=== PATIENT | female | born 1960 | race Caucasian/White ===

== ENCOUNTER 2016-08-10 19:54 | Emergency (ER) | payer MEDICAID, OTHER ==
[~2016-08-10] VITALS: Ht 160 cm; Wt 65.0 kg
[2016-08-10 20:00] VITALS: Ht 160 cm; Wt 65.0 kg
[2016-08-10] MEDS ORDERED: CEPH-443 PO (20:46)
[2016-08-10] MEDS ORDERED: KENC1 TOP (20:46)
[2016-08-10 21:19] VITALS: BP 116/67; PULSE 73; RESP 20; TEMP 98.3
--- NOTE | 2016-08-10 21:48 | ERD ---
ER Documentation Chief Complaint Date/Time DATE: 08/10/16 TIME: 21:42 Chief Complaint rash/itch left lower leg x 2 weeks HPI 55-year-old female with no significant past medical history presents the ED complaining of a rash noted on her left lower leg that started 2 weeks ago. States that has gotten worse over the last few days. States that she has been scratching the area. States that it is getting bigger. Denies others having the same rash. Denies any exposure to pets or insects. Denies any new use of soaps or detergents or new clothes. States that she has been applying triple antibiotic, Neosporin without relief of the symptoms. States that it is itchy. Denies any diabetes. Denies any fever, chills, leg pain, chest pain, shortness of breath, abdominal pain. ROS All systems reviewed and are negative except as per history of present illness. Medications Home Meds Active Scripts Cephalexin* (Keflex*) 500 Mg Capsule, 500 MG PO QID for 7 Days, CAP Prov:KATRINA JOHNSON PA-C 08/10/16 Triamcinolone Acetonide (Triamcinolone Acetonide) 0.1% - 15 Gm Cream.gm., 1 APPLIC TOP BID, #1 TUB Prov:KATRINA JOHNSON PA-C 08/10/16 Allergies Allergies: Coded Allergies: No Known Drug Allergies (Verified Allergy, Unknown, 08/10/16) PMhx/Soc Medical and Surgical Hx: pt denies Surgical Hx Anesthesia Reaction: No Hx Neurological Disorder: No Hx Respiratory Disorders: No Hx Cardiac Disorders: No Hx Psychiatric Problems: No Hx Miscellaneous Medical Probl: Yes (VENOUS INSUFFICIENCY L LEG) Hx Alcohol Use: No Hx Substance Use: No Hx Tobacco Use: No Smoking Status: Never smoker Physical Exam Vitals Vital Signs Date Time Temp Pulse Resp B/P Pulse Ox O2 Delivery O2 Flow Rate FiO2 08/10/16 21:19 98.3 73 20 116/67 99 Room Air 08/10/16 20:00 98.3 73 20 108/62 99 Physical Exam Const: [id number]-[id number], well-nourished. In no acute distress. Head: Atraumatic, normocephalic Eyes: Normal Conjunctiva without injection ENT: Normal external ear, nose and mouth. Neck: Full range of motion. No meningismus. Resp: Clear to auscultation bilaterally. No wheezing, rhonchi, rales, or crackles. No accessory muscle use. No retractions. Cardio: Regular rate and rhythm, no murmurs Skin: No petechiae, purpura. 4 cm oval rash noted on the anterior serrano, beefy red in color, weeping. No surrounding erythema, edema, purulent discharge, fluctuance, induration. Back: No midline tenderness. No CVA tenderness. Ext: No cyanosis, or edema. Cap refill less than 2 seconds. Distal pulses intact bilaterally. Neur: Awake and alert. Normal gait and coordination. Muscle strength 5/5. Sensation intact bilaterally. Psych: Normal Mood and Affect Procedures/MDM This is a 55-year-old female with no significant past medical history presents to the ED complaining of a rash noted on her left anterior serrano that started 2 weeks ago. Patient is afebrile and nontoxic-appearing. Patient has normal vital signs. Patient's rash could likely be due to possible psoriasis however she was instructed to follow-up with a cell tender helper if symptoms do not improve after trying a course of triamcinolone and Keflex. Outpatient antibiotics will be prescribed for patient since the rash is weeping in nature. Other differential diagnosis considered include but is not limited to allergic contact dermatitis, urticaria, insect bites, cutaneous candidiasis, eczema, tinea infection. Low suspicion for scabies, SJS/TEN, sepsis, cellulitis, erythema multiforme, gangrene, meningococcemia, necrotizing fascitis, or other emergent conditions. This case was discussed with my supervising physician, Dr. Navarro who agreed with the management and discharge plan. Discharge medications: Keflex, Triamcinolone Follow up with primary care physician in 1-2 days. Instructed patient to return to the ED sooner for any worsening symptoms. Patient's questions were answered. Patient understood and agreed with discharge plan. Patient discharged stable. Departure Diagnosis: Primary Impression: Rash and other nonspecific skin eruption Condition: Stable Patient Instructions: Self-Care for Skin Rashes Referrals: [facility] Usted se aparicio hecho un examen mdico de control que le indica que no est en raquel condicin que requiera tratamiento urgente en el Departamento de Emergencia. Un estudio ms profundo y el tratamiento de burns condicin pueden esperar sin ningn riesgo hasta que usted sea atendida/o en el consultorio de burns mdico o raquel cl mat. Es responsabilidad suya arreglar raquel wilner para el seguimiento del faisal. MANEJO DE CONDICIONES NO URGENTES EN EL FUTURO 1) Si usted tiene un mdico de atencin primaria: Usted debera llamar a burns mdico de atencin primaria antes de venir al departamento de emergencia. Despus de las horas de consultorio, burns doctor o burns asociado/a est disponible por telfono. El mdico o enfermero de israel en el servicio telefnico puede asesorarle por shawn medio para atender el problema, o faisal contrario se puede programar raquel wilner. 2) Si usted no tiene un mdico de atencin primaria: Llame al mdico o clnica de referencia que aparece abajo lance las horas de consultorio para hacer raquel wilner para que le vean. CLINICAS: [facility] [phone] [facility] [phone] [facility] [phone] [address] [facility]. [facility] [phone] [facility]. [place] [id number] [phone] [facility]. [phone] [address] [facility] () Usted se aparicio hecho un examen mdico de control que le indica que no est en raquel condicin que requiera tratamiento urgente en el Departamento de Emergencia. Un estudio ms profundo y el tratamiento de burns condicin pueden esperar sin ningn riesgo hasta que usted sea atendida/o en el consultorio de burns mdico o raquel cl mat. Es responsabilidad suya arreglar raquel wilner para el seguimiento del faisal. MANEJO DE CONDICIONES NO URGENTES EN EL FUTURO 1) Si usted tiene un mdico de atencin primaria: Usted debera llamar a burns mdico de atencin primaria antes de venir al departamento de emergencia. Despus de las horas de consultorio, burns doctor o burns asociado/a est disponible por telfono. El mdico o enfermero de israel en el servicio telefnico puede asesorarle por shawn medio para atender el problema, o faisal contrario se puede programar raquel wilner. 2) Si usted no tiene un mdico de atencin primaria: Llame al mdico o condado institucions de referencia que aparece abajo lance las horas de consultorio para hacer raquel wilner para que le vean. SI USTED NO PUEDE PAGAR PARA VANDANA UN MEDICO puede ir a: [facility] [address] [place] [address] [facility] [address] [place] [address] [facility] [address] [place] [address] [facility] [address] [place], [place] [phone] Additional Instructions: Visite a burns mdico maana para un EXAMEN para raquel remisin al dermatlogo. Regrese a estas instalaciones si no se mejora katarina esperbamos o katarina le dijimos. KATRINA JOHNSON PA-C Aug 10, 2016 21:48
== END 2016-08-10 21:21 | disposition home or self-care (01) ==
LOC: FTE 19:54
DX: R21 Rash and other nonspecific skin eruption (principal)
CPT/HCPCS: 99284